=== PATIENT | female | born 1985 | race Caucasian/White ===

== ENCOUNTER 2017-10-09 10:04 | Outpatient (CLI) | payer OTHER ==
[~2017-10-09] VITALS: Ht 157.5 cm; Wt 59.0 kg
[2017-10-09 10:32] VITALS: BP 120/82
[2017-10-09] MEDS ORDERED: PRENATAL TABLE1 EAC3 PO (10:52)
[2017-10-09] MEDS ORDERED: ACYCLOVIR400 MG PO (10:52)
[2017-10-09] MEDS ORDERED: ZANTAC75 M1 PO (10:54)
[2017-10-09 11:04] VITALS: BP 118/72
[2017-10-09 12:05] VITALS: BP 145/84
[2017-10-09 13:01] VITALS: BP 134/77
== END 2017-10-09 13:12 | disposition home or self-care (01) ==
LOC: LDRP-OP 10:04 → 2WEST 10:05 → LDRP-OP 12:38 → 2WEST 13:12 → LDRP-OP 11-23 13:37
PROC: 10S0XZZ Reposition Products of Conception, External Approach (ICD-10-PCS; principal; 2017-10-09)
DX: O32.1XX0 Maternal care for breech presentation, not applicable or unspecified (principal); Z3A.37 37 weeks gestation of pregnancy; O98.313 Other infections with a predominantly sexual mode of transmission complicating pregnancy, third trimester; A60.00 Herpesviral infection of urogenital system, unspecified; O99.820 Streptococcus B carrier state complicating pregnancy
CPT/HCPCS: 59025; G0378; J3105

== ENCOUNTER 2017-10-16 10:28 | Inpatient (IN) | payer OTHER ==
[~2017-10-16] VITALS: Ht 157.5 cm; Wt 61.2 kg
[2017-10-16] VITALS (9 sets, daily range): BP systolic 102–195; BP diastolic 57–105
[~2017-10-16 10:28] MED LIST: ACYCLOVIR400 MG PO; PRENATAL TABLE1 EAC3 PO; ZANTAC75 M1 PO
[2017-10-16 12:31] LABS: BASOPHIL (%) 0.5 % (0-1); BASOPHIL COUNT 0.1 K/uL (0-0.1); EOSINOPHIL (%) 0.9 % (0-5); EOSINOPHIL COUNT 0.1 K/uL (0-0.3); HEMOGLOBIN 12.7 G/DL (11.9-15.5); IMMATURE GRANULOCYTE (%) 0.6 % (0.0-0.7); LYMPHOCYTE COUNT 2.7 K/uL (1.0-2.8); MCH 31.6 PG (29.0-34.0); MCHC 34.3 G/DL (30.0-36.0); MONOCYTE (%) 6.4 % (3-12); MONOCYTE COUNT 0.8 K/uL (0-0.8); NEUTROPHIL (%) 68.6 % (45-76); PLATELET COUNT 171 K/uL (156-360); RBC DIS.WIDTH-SD 43.3 % (39-53); RED BLOOD COUNT 4.02 M/uL (3.80-5.20); WHITE BLOOD COUNT 11.7 K/uL (4.1-10.2)
[2017-10-16 13:32] LABS: BASE EXCESS -3.5 mEq/L (-3 to +3); BICARBONATE 23.2 mEq/L (22-26); CARBOXY HGB 0.9 % (0-5); METHEMOGLOBIN 1.8 % (0-1.5); PCO2 46 mm Hg (35-45); PO2 < 32 mm Hg (80-100); pH 7.31 (7.35-7.45)
[2017-10-16 13:34] LABS: COMMENTS - BLOOD GASES CORD BLOOD FROM OR
[2017-10-16 13:53] LABS: BASE EXCESS -4.3 mEq/L (-3 to +3); BICARBONATE 25.6 mEq/L (22-26); CARBOXY HGB 0.5 % (0-5); METHEMOGLOBIN 2.1 % (0-1.5); PCO2 64 mm Hg (35-45)
[2017-10-16 13:56] LABS: COMMENTS - BLOOD GASES C+ DRAWN IN OR; PO2 < 32 mm Hg (80-100); SITE CORD SAMPLE FROM OR; pH 7.21 (7.35-7.45)
[2017-10-17] VITALS (7 sets, daily range): BP systolic 104–120; BP diastolic 56–71
[2017-10-17 06:22] LABS: BASOPHIL (%) 0.3 % (0-1); BASOPHIL COUNT 0.1 K/uL (0-0.1); EOSINOPHIL (%) 0.5 % (0-5); EOSINOPHIL COUNT 0.1 K/uL (0-0.3); HEMATOCRIT 30.9 % (36.0-46.0); IMMATURE GRANULOCYTE (%) 0.5 % (0.0-0.7); LYMPHOCYTE (%) 16.8 % (15-42); LYMPHOCYTE COUNT 2.8 K/uL (1.0-2.8); MCHC 33.7 G/DL (30.0-36.0); MCV 92.2 FL (83-99); MONOCYTE (%) 7.6 % (3-12); MONOCYTE COUNT 1.2 K/uL (0-0.8); NEUTROPHIL (%) 74.3 % (45-76); NEUTROPHIL COUNT 12.2 K/uL (1.8-6.4); PLATELET COUNT 149 K/uL (156-360); RBC DIS.WIDTH-CV 12.9 % (11.8-14.6); RBC DIS.WIDTH-SD 42.5 % (39-53); RED BLOOD COUNT 3.35 M/uL (3.80-5.20); WHITE BLOOD COUNT 16.4 K/uL (4.1-10.2)
[2017-10-17 06:23] LABS: HEMOGLOBIN 10.4 G/DL (11.9-15.5)
[2017-10-18 07:30] VITALS: BP 126/61
[2017-10-18 11:00] VITALS: BP 148/61
[2017-10-18 22:55] VITALS: BP 132/72
[2017-10-19 07:28] VITALS: BP 145/79
[2017-10-19] MEDS ORDERED: IBUPROFEN800 MG PO (11:02)
[2017-10-19] MEDS ORDERED: ENDOCET 5-3251 EACH PO (11:02)
[2017-10-19 11:15] VITALS: BP 139/83
== END 2017-10-19 15:00 | disposition home or self-care (01) | DRG 765 ==
LOC: LDRP-OP 10:28 → 2WEST 10:29 → LDRP-OP 11-23 13:16
PROVIDERS: Advanced Practice Midwife; Obstetrics & Gynecology
PROC: 10D00Z1 Extraction of Products of Conception, Low, Open Approach (ICD-10-PCS; principal; 2017-10-16)
DX: O32.1XX0 Maternal care for breech presentation, not applicable or unspecified (principal); O98.32 Other infections with a predominantly sexual mode of transmission complicating childbirth; O99.824 Streptococcus B carrier state complicating childbirth; Z87.891 Personal history of nicotine dependence; Z3A.38 38 weeks gestation of pregnancy; O42.92 Full-term premature rupture of membranes, unspecified as to length of time between rupture and onset of labor; A60.00 Herpesviral infection of urogenital system, unspecified; Z37.0 Single live birth
CPT/HCPCS: 36600; 82803; 85025; 86850; 86900; 86901; J0690; J1200; J2274; J7120